=== PATIENT | female | born 1980 | race Caucasian/White ===

== ENCOUNTER 2016-07-26 14:13 | Emergency (ER) | payer OTHER ==
[~2016-07-26] VITALS: Ht 177.8 cm; Wt 117.9 kg
[2016-07-26] MEDS ORDERED: ZOFRAN ODT4 MG PO (14:56)
[2016-07-26 15:13] VITALS: BP 131/94
== END 2016-07-26 15:14 | disposition home or self-care (01) ==
LOC: RME 14:13 → EME 14:13 → RME 15:14
DX: S06.0X9A Concussion with loss of consciousness of unspecified duration, initial encounter (principal); W01.198A Fall on same level from slipping, tripping and stumbling with subsequent striking against other object, initial encounter; Z88.0 Allergy status to penicillin
CPT/HCPCS: 99281; 99284